=== PATIENT | male | born 1965 | race Caucasian/White ===

== ENCOUNTER 2020-05-08 02:02 | Outpatient (CLI) | payer OTHER, SELFPAY ==
[2020-05-08 18:20] LABS: SARS-CoV-2 RNA PCR Negative
== END 2020-05-08 02:03 | disposition home or self-care (01) ==
LOC: ANHCOVIDDT 02:02
PROVIDERS: PCP Family Medicine; Visit Provider Internal Medicine Gastroenterology
DX: Z01.812 Encounter for preprocedural laboratory examination (principal); Z11.59 Encounter for screening for other viral diseases
CPT/HCPCS: 87635; C9803; U0003

== ENCOUNTER 2020-05-10 01:35 | Day surgery (SDC) | payer OTHER, SELFPAY ==
[2020-05-03 13:11] VITALS: BMI 36.8
[2020-05-10 10:50] VITALS: BP 140/87; PULSE 82; RESP 18; TEMP 36.7; O2SAT 97; BMI 37.8
[2020-05-10] MEDS: LACTATED RINGERS 1,000 ML 150 ML IV CONT (11:08)
--- NOTE | 2020-05-10 11:23 | P.PNAN_ITS ---
Anes - Initial Pre Proc Eval Procedure: Operation Date: 05/10/20 11:15 Proposed Procedures p Screening Colonoscopy - Tye Stein MD Date/Time: 05/10/20 11:23 Surgeon: Tye Stein MD Pre Op Diagnosis: Neoplasm Screening Patient Data Age: 55 Gender: M Height: 5 ft 11 in Weight: 123.1 kg Last Vital Signs Temp 98.1 F 05/10/20 10:50 Pulse 82 05/10/20 10:50 Resp 18 05/10/20 10:50 BP 140/87 05/10/20 10:50 Pulse Ox 97 05/10/20 10:50 Allergies Allergy/AdvReac Type Severity Reaction Status Date / Time No Known Allergies Allergy Verified 05/03/20 13:06 Home Medications Medication Instructions Recorded Confirmed Type paroxetine HCl 12.5 mg 12.5 mg PO QAM #90 tablet 03/06/20 05/03/20 Rx tablet,extended release 24 hr alprazolam 0.25 mg tablet 0.25 mg PO TID PRN 03/08/20 05/03/20 History benazepril 20 mg tablet 20 mg PO DAILY #90 tablet 03/08/20 05/03/20 Rx ezetimibe 10 mg tablet 10 mg PO DAILY #90 tablet 04/11/20 05/03/20 Rx paroxetine HCl 37.5 mg 37.5 mg PO QAM #90 tablet 04/24/20 05/03/20 Rx tablet,extended release 24 hr hydrochlorothiazide 50 mg PO DAILY 05/03/20 05/03/20 History Patient hx anesthesia problems: none Family hx anesthesia problems: none [facility] Past Medical History Medical History (Updated 05/10/20 @ 11:23 by Jonel Garcia MD) Anxiety and depression Essential hypertension Social History Social History Smoking status: Never smoker Alcohol intake: current Anes - Eval Final PreProcedure Day of Procedure 05/10/20 11:23 Patient weight: obese Heart: regular rate and rhythm Lungs: clear to auscultation Airway: Mallampati scale class II Neurological: alert and oriented Last oral intake: >/= 8 hours Emergent: no Anesthetic plan: proceed Anesthesia type and monitoring: general GIVS and standard monitoring Informed Consent: The patient's anesthetic plan and its attendant risks and benefits were discussed with the patient/family/POA. Questions were solicited and answers provided to the satisfaction of the patient/family/POA.
--- NOTE | 2020-05-10 12:11 | PM.HPGS ---
History of Present Illness History of Present Illness Consent: Risks, benefits, and alternatives have been discussed and questions answered. Patient agrees to proceed with procedure. Chief complaint: Neoplasm Screening Narrative: Yinka Roberts is a 55 year old male here for screening colonoscopy, last one 5 years ago Review of Systems Constitutional: Constitutional: Denies headache(s) and Denies weakness Eyes: Eyes: Denies blurry vision ENT: Reports Normal hearing present, Denies headache(s) and Denies neck pain Cardiovascular: Cardiovascular: Denies chest pain and Denies dyspnea Respiratory: Respiratory: Denies dyspnea Gastrointestinal: Gastrointestinal: Reports no additional gastrointestinal complaints Genitourinary: Genitourinary: Denies dysuria Musculoskeletal: Musculoskeletal: Denies neck pain Integumentary/Breasts: Skin/Breast: Denies dry skin Neurologic: Reports Normal hearing present, Denies headache(s) and Denies weakness Psychiatric: Psychiatric: Denies anxiety Endocrine: Endocrine: Denies change in body appearance Hematologic/Lymphatic: Hematologic/Lymphatic: Denies easy bleeding Allergic/Immunologic: Allergic/Immunologic: Denies urticaria PMFSH Past Medical History Medical History (Updated 05/10/20 @ 12:11 by Tye Stein MD) Anxiety and depression Colon cancer screening Essential hypertension Social History Social History Smoking status: Never smoker Alcohol intake: current Meds Home Medications and Allergies Home Medications Medication Instructions Recorded Confirmed Type paroxetine HCl 12.5 mg 12.5 mg PO QAM #90 tablet 03/06/20 05/03/20 Rx tablet,extended release 24 hr alprazolam 0.25 mg tablet 0.25 mg PO TID PRN 03/08/20 05/03/20 History benazepril 20 mg tablet 20 mg PO DAILY #90 tablet 03/08/20 05/03/20 Rx ezetimibe 10 mg tablet 10 mg PO DAILY #90 tablet 04/11/20 05/03/20 Rx paroxetine HCl 37.5 mg 37.5 mg PO QAM #90 tablet 04/24/20 05/03/20 Rx tablet,extended release 24 hr hydrochlorothiazide 50 mg PO DAILY 05/03/20 05/03/20 History Allergies Allergy/AdvReac Type Severity Reaction Status Date / Time No Known Allergies Allergy Verified 05/03/20 13:06 Vital Signs Vital Signs - 24 hr 05/10/20 10:50 Temperature 98.1 F Pulse Rate 82 Respiratory Rate 18 Blood Pressure 140/87 Pulse Oximetry 97 Exam Const: General: comfortable and no acute distress HENMT: General nose exam: Normal nares present Eyes: General: appearance normal, both eyes and all related structures Neck: Neck: no JVD Resp: Auscultation: clear to auscultation bilaterally Cardio: Rate: regular rate Rhythm: regular rhythm GI: Inspection: non-distended GI Palp: Yes Soft to palpation Skin: General skin exam: normal color Neuro: General: gait normal Speech: normal speech Extrem: General: normal to inspection Psych: Mental Status: mental status grossly normal Assessment and Plan Assessment and plan (1) Colon cancer screening: Code(s): Z12.11 - Encounter for screening for malignant neoplasm of colon Status: Acute Assessment and Plan: will proceed with colonoscopy (2) Mixed hyperlipidemia: Code(s): E78.2 - Mixed hyperlipidemia Status: Acute
[2020-05-10 12:14] VITALS: BP 124/85; PULSE 88; RESP 17; O2SAT 91
[2020-05-10 12:24] VITALS: BP 134/89; PULSE 75; RESP 18; O2SAT 93
[2020-05-10 12:34] VITALS: BP 132/88; PULSE 72; RESP 20; O2SAT 95
== END 2020-05-10 12:47 | disposition home or self-care (01) ==
PROVIDERS: PCP Family Medicine; Visit Provider Internal Medicine Gastroenterology
PROC: 0DJD8ZZ Inspection of Lower Intestinal Tract, Via Natural or Artificial Opening Endoscopic (ICD-10-PCS; CPT 45378; principal; 2020-05-10 11:15)
DX: Z12.11 Encounter for screening for malignant neoplasm of colon (principal); D12.3 Benign neoplasm of transverse colon; K63.5 Polyp of colon; K57.30 Diverticulosis of large intestine without perforation or abscess without bleeding; K64.8 Other hemorrhoids; I10 Essential (primary) hypertension; F41.8 Other specified anxiety disorders; E66.9 Obesity, unspecified; Z68.37 Body mass index [BMI] 37.0-37.9, adult
CPT/HCPCS: 45380; 88305; J2001; J2704; J7120

== ENCOUNTER 2020-09-25 11:02 | Outpatient (CLI) | payer OTHER, SELFPAY ==
--- NOTE | 2020-09-25 11:03 | ECG_ITS ---
Measurements Intervals [place] Rate: 76 P: 58 [place]: 159 QRS: -35 QRSD: 146 T: -1 QT: 362 QTc: 409 Interpretive Statements SINUS RHYTHM LEFT AXIS DEVIATION RIGHT BUNDLE BRANCH BLOCK BASELINE ARTIFACT- I, II, III, AVR, AVL, AVF, V4-V6 ABNORMAL ECG Electronically Signed On 09-25-2020 11:35:27 SENIOR RESEARCH FELLOW by Adilson Aviles D.O.
[2020-09-25 11:39] LABS: Anion Gap 7 mmol/L (8-16); Blood Urea Nitrogen 14 mg/dL (9-20); Calcium 9.1 mg/dL (8.4-10.2); Carbon Dioxide 31 mmol/L (22-30); Chloride 100 mmol/L (98-107); Estimated Glomerular Filt Rate > 60; Glucose 103 mg/dL (75-110); Potassium 4.2 mmol/L (3.4-5.0); Sodium 138 mmol/L (137-145)
== END 2020-09-25 11:03 | disposition home or self-care (01) ==
LOC: ANHSURGERY 11:03
PROVIDERS: Anesthesiology; PCP Family Medicine; Visit Provider Surgery Plastic and Reconstructive Surgery
DX: Z01.818 Encounter for other preprocedural examination (principal); I45.10 Unspecified right bundle-branch block
CPT/HCPCS: 36415; 80048; 93005

== ENCOUNTER 2020-09-30 01:20 | Outpatient (CLI) | payer OTHER, SELFPAY ==
[2020-09-30 20:08] LABS: SARS-CoV-2 RNA PCR Negative
== END 2020-09-30 01:21 | disposition home or self-care (01) ==
LOC: ANHCOVIDDT 01:20
PROVIDERS: PCP Family Medicine; Visit Provider Surgery Plastic and Reconstructive Surgery
DX: Z01.812 Encounter for preprocedural laboratory examination (principal); Z20.822 Contact with and (suspected) exposure to COVID-19
CPT/HCPCS: C9803; U0003

== ENCOUNTER 2020-10-03 01:54 | Day surgery (SDC) | payer OTHER, SELFPAY ==
[2020-09-20 10:48] VITALS: BMI 37.9
[2020-10-03] VITALS (8 sets, daily range): BP systolic 138–162; BP diastolic 83–95; PULSE 87–96; RESP 16–20; TEMP 36–36.6; O2SAT 94–97; BMI 38.4
[2020-10-03] MEDS: LACTATED RINGERS 1,000 ML 30 ML IV CONT ×2 (13:19→16:08)
--- NOTE | 2020-10-03 13:22 | WPDANESEPPF ---
Anes - Initial Pre Proc Eval Procedure: Operation Date: 10/03/20 14:30 Proposed Procedures p Bilateral Blepharoplasty - Ulysses Henry MD Date/Time: 10/03/20 13:22 Surgeon: Ulysses Henry MD Pre Op Diagnosis: dermatochalisis Patient Data Age: 55 Gender: M Height: 5 ft 11 in Weight: 125 kg Last Vital Signs Temp 97.8 F 10/03/20 13:20 Pulse 87 10/03/20 13:20 Resp 20 10/03/20 13:20 BP 149/92 H 10/03/20 13:20 Pulse Ox 96 10/03/20 13:20 Allergies Allergy/AdvReac Type Severity Reaction Status Date / Time No Known Allergies Allergy Verified 10/03/20 13:09 Home Medications Medication Instructions Recorded Confirmed Type alprazolam 0.25 mg tablet 0.25 mg PO TID PRN 03/08/20 10/03/20 History multivitamin 1 cap PO DAILY 06/27/20 10/03/20 History ezetimibe 10 mg tablet 10 mg PO DAILY #90 tablet 09/01/20 10/03/20 Rx paroxetine HCl 12.5 mg 12.5 mg PO QAM #90 tablet 09/01/20 10/03/20 Rx tablet,extended release 24 hr paroxetine HCl 37.5 mg 37.5 mg PO QAM #90 tablet 09/01/20 10/03/20 Rx tablet,extended release 24 hr benazepril-hydrochlorothiazide 1 tablet PO DAILY 09/20/20 10/03/20 History [Lotensin HCT] docusate sodium 100 mg capsule 100 mg PO BID #14 cap 09/25/20 10/03/20 Rx hydrocodone 5 mg-acetaminophen 325 1 tablet PO Q6H PRN #15 tablet 09/25/20 10/03/20 Rx mg tablet ondansetron HCl 4 mg tablet 4 mg PO Q6H PRN #30 tablet 09/25/20 10/03/20 Rx Patient hx anesthesia problems: none Family hx anesthesia problems: none PMFSH Past Medical History Medical History (Updated 10/03/20 @ 13:22 by Jonel Garcia MD) Anxiety and depression Colon cancer screening Elevated liver enzymes Essential hypertension Mixed hyperlipidemia Surgical History Surgical History History of surgical removal of lesion Family History Family History Sibling Family history of malignant neoplasm Mother Family history of lung cancer Grandparent Family history of malignant neoplasm of brain Family history of malignant neoplasm of breast Family history of type 2 diabetes mellitus Father Family history of type 2 diabetes mellitus Social History Social History Smoking packs per day: 1 Smoking cigarettes per day: 20.0 Years smoked: 12 Smoking pack-years: 12.00 Smoking status: Never smoker Tobacco type: cigarettes Alcohol intake: current Substance use: never Gender identity (if verbalized by the patient): Male Spiritual care concerns: No Anes - Eval Final PreProcedure Day of Procedure 10/03/20 13:22 Patient weight: obese Heart: regular rate and rhythm Airway: Mallampati scale class III Neurological: alert and oriented ASA classification: III Emergent: no Anesthetic plan: proceed Anesthesia type and monitoring: general GIVS (may use LMA) and standard monitoring Informed Consent: The patient's anesthetic plan and its attendant risks and benefits were discussed with the patient/family/POA. Questions were solicited and answers provided to the satisfaction of the patient/family/POA.
--- NOTE | 2020-10-03 14:32 | WPDHPUPDATE1 ---
History and Physical Update Update Date/Time: 10/03/20 14:32 History and Physical has been reviewed, including an updated exam of the patient. There are NO changes in the patient's condition. Risks, benefits, and alternatives have been discussed and questions answered. Patient agrees to proceed with procedure.
--- NOTE | 2020-10-03 14:55 | PM.PROC ---
Procedure Note - Detailed Date of procedure: 10/03/20 Pre-op diagnosis: dermatochalisis Post-op diagnosis: same Procedure performed: Bilateral upper eyelid blepharoplasty Description of procedure: Risks, benefits, alternatives discussed in extensive detail. I want him to be very realistic about the risks involved as well as expectations including but not limited to blindness and permanent visual concerns. All questions were answered to his satisfaction today and consent was obtained. He was marked in the preoperative holding area with his verification. I did a pinch test to make sure there would be no lagophthalmos after the procedure. He was taken to the operating room placed supine on the operating room table. Anesthesia was provided by anesthesiology and prepped and draped in a standard sterile fashion. A 15 blade used to make an incision I did a skin resection. I then opened the medial and middle compartments and removed any obviously excess adipose tissue. I verified a strict hemostasis and closed using a running subcuticular 5-0 Prolene which was Steri-Stripped into place. He was woken taken to the PACU without difficulty. All instrument sponge counts were correct at the end of the case. Anesthesia: GLMA Surgeon: Ulysses Henry MD Estimated blood loss (mL): 5 Drains: No Packing: No Pathology: none sent Complications: No immediate complications Condition: stable Disposition: PACU
[2020-10-03] MEDS: ceFAZolin 3 GM/D5W 100 ML 100 ML IVPB (15:09)
[2020-10-03] MEDS: LIDO 1%/EPINEPHRINE 1:100,000 50 ML VIAL 10 ML INFILTRATE (15:20)
== END 2020-10-03 17:41 | disposition home or self-care (01) ==
PROVIDERS: PCP Family Medicine; Visit Provider Surgery Plastic and Reconstructive Surgery
PROC: (CPT 15822; principal; 2020-10-03 14:30)
DX: H02.834 Dermatochalasis of left upper eyelid (principal); H02.831 Dermatochalasis of right upper eyelid; H57.819 Brow ptosis, unspecified; I10 Essential (primary) hypertension; E78.2 Mixed hyperlipidemia; K76.0 Fatty (change of) liver, not elsewhere classified; F41.8 Other specified anxiety disorders; E66.9 Obesity, unspecified; Z68.38 Body mass index [BMI] 38.0-38.9, adult; Z87.891 Personal history of nicotine dependence
CPT/HCPCS: 15822; A9270; J0690; J1100; J2250; J2370; J2405; J2704; J3010; J7120

== ENCOUNTER 2020-11-17 08:09 | Outpatient (CLI) | payer OTHER, SELFPAY ==
--- NOTE | ~2020-11-17 | US_ITS ---
EXAMINATION: US abdomen complete DATE: 11/17/2020 08:54 INDICATION: Right-sided abdominal pain TECHNIQUE: Multiple grayscale and Doppler ultrasound images of the abdomen were obtained. COMPARISON: 12/12/2018 FINDINGS: Bowel gas obscures visualization of the pancreas. The visualized portions of the pancreas a re unremarkable. The liver demonstrates increased echogenicity, heterogenous echotexture, and decreas ed through transmission. Cysts of the liver measure up to 1.3 cm. No surface nodularity. Normal hepat opetal flow in the main portal vein. There is a 4 mm hyperechoic area of the gallbladder without defi nite posterior acoustic shadowing. No gallbladder wall thickening is identified. There is no perichol ecystic fluid. The normal common bile duct measures 4 mm. There was no sonographic Giron sign. The v isualized portions of the inferior vena cava are normal. The abdominal aorta is not well seen due to overlying bowel gas. The right kidney measures 12.7 x 5.6 x 5.5 cm. The left kidney measures 12.1 x 6.6 x 5.2 cm. The kidn eys demonstrate normal parenchymal echogenicity. There is no hydronephrosis. The spleen is normal in appearance and measures 10.1 cm. IMPRESSION: 1. Diffuse hepatic steatosis. 2. 4 mm polyp or stone of the otherwise normal gallbladder. 3. No sonographic correlate for the patient's symptoms. Reviewed, dictated and finalized at location A. [employer]
== END 2020-11-17 08:10 | disposition home or self-care (01) ==
PROVIDERS: PCP Family Medicine; Visit Provider Nurse Practitioner Family
DX: R10.9 Unspecified abdominal pain (principal); K76.0 Fatty (change of) liver, not elsewhere classified; R93.3 Abnormal findings on diagnostic imaging of other parts of digestive tract
CPT/HCPCS: 76700

== ENCOUNTER → 2020-12-02 00:47 | Outpatient (CLI) | payer OTHER, SELFPAY ==
[2020-12-02 19:48] LABS: SARS-CoV-2 RNA PCR Negative
== END ==
PROVIDERS: PCP Family Medicine; Visit Provider Surgery
DX: Z01.812 Encounter for preprocedural laboratory examination (principal); Z20.822 Contact with and (suspected) exposure to COVID-19
CPT/HCPCS: C9803; U0003; U0005

== ENCOUNTER 2020-12-02 09:55 | Outpatient (CLI) | payer OTHER, SELFPAY | END 2020-12-02 09:56 | disposition home or self-care (01) | PROVIDERS: PCP Family Medicine; Visit Provider Surgery | DX: Z01.818 Encounter for other preprocedural examination (principal); K80.20 Calculus of gallbladder without cholecystitis without obstruction | CPT/HCPCS: 36415; 86850; 86900; 86901 ==

== ENCOUNTER 2020-12-06 02:13 | Day surgery (SDC) | payer OTHER, SELFPAY ==
[2020-11-30 14:17] VITALS: BMI 38.4
--- NOTE | 2020-12-05 09:44 | WPDANESEPPF ---
Anes - Initial Pre Proc Eval Procedure: Operation Date: 12/06/20 07:30 Proposed Procedures p Laparoscopic Cholecystectomy - Kamaljit Shaw DO Date/Time: 12/05/20 09:44 Surgeon: Kamaljit Shaw DO Pre Op Diagnosis: Systematic Cholelithiasis Patient Data Age: 55 Gender: M Height: 1.8 m Weight: 125 kg Allergies Allergy/AdvReac Type Severity Reaction Status Date / Time No Known Allergies Allergy Verified 11/30/20 13:53 Home Medications Medication Instructions Recorded Confirmed Type alprazolam 0.25 mg tablet 0.25 mg PO TID PRN 03/08/20 11/30/20 History multivitamin 1 cap PO DAILY 06/27/20 11/30/20 History paroxetine HCl 12.5 mg 12.5 mg PO QAM #90 tablet 09/01/20 11/30/20 Rx tablet,extended release 24 hr paroxetine HCl 37.5 mg 37.5 mg PO QAM #90 tablet 09/01/20 11/30/20 Rx tablet,extended release 24 hr benazepril 40 mg tablet 40 mg PO DAILY #30 tablet 11/15/20 11/30/20 Rx ezetimibe 10 mg tablet 10 mg PO DAILY tablet 11/15/20 11/30/20 History hydrochlorothiazide 25 mg tablet 25 mg PO DAILY #30 tablet 11/15/20 11/30/20 Rx Patient hx anesthesia problems: none Family hx anesthesia problems: none PMFSH Past Medical History Medical History Anxiety and depression BMI 37.0-37.9, adult Colon cancer screening Elevated liver enzymes Essential hypertension Mixed hyperlipidemia Surgical History Surgical History History of colonoscopy History of eyelid surgery History of surgical removal of lesion History of tonsillectomy Family History Family History Sibling Family history of malignant neoplasm Mother Family history of lung cancer Non Hodgkin's lymphoma Grandparent Family history of malignant neoplasm of brain Family history of malignant neoplasm of breast Family history of type 2 diabetes mellitus Father Family history of type 2 diabetes mellitus Sibling Tobacco abuse Acute myocardial infarction Social History Social History Smoking packs per day: 1 Smoking cigarettes per day: 20.0 Years smoked: 12 Smoking pack-years: 12.00 Tobacco type: cigarettes Smoking end date: 12/28/96 Additional smoking assessment comments: smoker 1ppd x10 years Alcohol intake: current Drinks per week: 5 Substance use: never Substance use type: does not use Living arrangements: with family Additional occupation/education comments: Educator Gender identity (if verbalized by the patient): Male Spiritual care concerns: No Anes - Eval Final PreProcedure Day of Procedure 12/05/20 09:44 Patient weight: obese Heart: regular rate and rhythm Lungs: clear to auscultation and normal air movement Airway: Mallampati scale class II Neurological: alert and oriented Last oral intake: >/= 8 hours ASA classification: III Emergent: no Anesthetic plan: proceed Anesthesia type and monitoring: general ETT Informed Consent: The patient's anesthetic plan and its attendant risks and benefits were discussed with the patient/family/POA. Questions were solicited and answers provided to the satisfaction of the patient/family/POA.
[2020-12-06] VITALS (8 sets, daily range): BP systolic 121–159; BP diastolic 82–103; PULSE 70–88; RESP 15–20; TEMP 36.3–36.7; O2SAT 95–98
[2020-12-06] MEDS: ACETAMINOPHEN 500 MG TABLET 1000 MG PO (06:47)
[2020-12-06] MEDS: KETOROLAC 15 MG/ML VIAL (*BKC) IV PUSH (06:47)
[2020-12-06] MEDS: LACTATED RINGERS 1,000 ML 30 ML IV CONT ×2 (06:48→08:26)
--- NOTE | 2020-12-06 07:13 | WPDHPUPDATE1 ---
History and Physical Update Update Date/Time: 12/06/20 07:13 History and Physical has been reviewed, including an updated exam of the patient. There are NO changes in the patient's condition. Risks, benefits, and alternatives have been discussed and questions answered. Patient agrees to proceed with procedure.
[2020-12-06] MEDS: ceFAZolin 3 GM/D5W 100 ML 100 ML IVPB (07:26)
[2020-12-06] MEDS: BUPIVACAINE/EPINEPHRINE 0.5% 30 ML VIAL INFILTRATE (07:49)
--- NOTE | 2020-12-06 08:24 | PM.PROC ---
Procedure Note - Detailed Date of procedure: 12/06/20 Pre-op diagnosis: Systematic Cholelithiasis Post-op diagnosis: same Procedure performed: Laparoscopic Cholecystectomy Description of procedure: Procedure as well as risks, benefits, and alternatives were discussed with patient. Written consent was obtained and placed in chart prior to procedure. The patient was brought back to surgical suite. Patient was placed in supine position on operating table. Time-out was done to confirm patient and procedure. Patient was then intubated by the anesthesia department. Abdomen was prepped and draped in sterile fashion using chlorhexidine prep. 0.5% bupivacaine with epinephrine was infiltrated at each site of incision. A 5 millimeter incision was made near the umbilicus, and a 5 millimeter Optiview trocar was advanced through the abdominal layers under direct visualization. Once inside the abdominal cavity, carbon dioxide was insufflated to create a pneumoperitoneum. The camera was inserted and the abdomen was inspected. No immediate abnormalities were identified. The patient was placed in reverse Trendelenburg position and rotated slightly to the left. An 11 millimeter incision was made in the subxiphoid region, and an 11 millimeter trocar was inserted under direct visualization. Two 5 millimeter incisions were made in the right upper quadrant, and two 5 millimeter trocars were inserted under direct visualization. The gallbladder was identified and grasped at the fundus and retracted superiorly. It was then grasped at the infundibulum retracted laterally. Careful dissection around the neck of the gallbladder was performed using blunt dissection with a [place] grasper and hook electrocautery. The cystic duct was identified, and a window was created behind it. The cystic artery was also identified and a window was created behind it. The critical view of safety was identified, visualizing the cystic duct running directly into the neck of the gallbladder, and the cystic artery running directly into the wall of the gallbladder. A 5 millimeter clip fuel distribution system operator was then used to place 2 clips proximally and 1 clip distally on both the cystic duct and cystic artery. They were then both transected using endoscopic scissors. Once safely away from the isela hepatitis, the gallbladder was dissected free from the liver bed using hook electrocautery. Hemostasis was achieved along the way. The gallbladder was removed completely and then removed through the subxiphoid port. The liver bed was then inspected. Hemostasis appeared adequate, and our clips appeared secure. The area was gently irrigated with sterile saline. No other abnormalities were seen. The patient was flattened out in bed, and 1 final inspection was made around the abdominal cavity. The subxiphoid port was removed, and a Alex Javier cone was used to approximate the fascia with an 0-Vicryl simple interrupted suture. The remaining ports were then removed under direct visualization, the camera was removed, and the pneumoperitoneum was released. The skin of the incisions was approximated using 4-0 Monocryl subcuticular sutures. Exofin glue was applied on top. The patient was then awakened from anesthesia, extubated, and transferred to recovery. Anesthesia: GETA and local (0.5% bupivicaine with epi) Surgeon: Kamaljit Shaw DO Estimated blood loss (mL): 10 Drains: No Packing: No Pathology: yes Complications: No immediate complications Condition: stable (Patient tolerated procedure well, and is currently resting comfortably in recovery.) Disposition: same day Findings: This is a 55-year-old man who presented with right upper quadrant abdominal pain for the past month. He could not identify any particular foods that were causing this, but further workup included a gallbladder ultrasound which showed evidence of a polyp or stone. He continues to have intermittent symptoms. Discussions were made with the pa
[2020-12-06] MEDS: oxyCODONE HCL (*CRX) 5 MG TAB IR PO (09:19)
== END 2020-12-06 10:10 | disposition home or self-care (01) ==
PROVIDERS: PCP Family Medicine; Visit Provider Surgery
PROC: 0FT44ZZ Resection of Gallbladder, Percutaneous Endoscopic Approach (ICD-10-PCS; CPT 47562; principal; 2020-12-06 07:30)
DX: K81.1 Chronic cholecystitis (principal); I10 Essential (primary) hypertension; E78.2 Mixed hyperlipidemia; F41.8 Other specified anxiety disorders; Z87.891 Personal history of nicotine dependence; E66.9 Obesity, unspecified; Z68.38 Body mass index [BMI] 38.0-38.9, adult
CPT/HCPCS: 47562; 88304; A9270; J0690; J1100; J1885; J2250; J2405; J2704; J2710; J3010; J7030; J7120

== ENCOUNTER 2021-02-08 15:36 | Emergency (ER) | payer OTHER, SELFPAY ==
--- NOTE | ~2021-02-08 | XR_ITS ---
EXAMINATION: XR ribs RT 2V DATE: 02/08/2021 16:02 INDICATION: Right rib pain. Fall. TECHNIQUE: 3 views of the right ribs were obtained. COMPARISON: Chest 2 views 08/09/2016 FINDINGS: There is no right-sided pneumonia, pleural effusion, or pneumothorax. The heart size is nor mal. Surgical clips in the right upper quadrant are likely from cholecystectomy. IMPRESSION: 1. No rib fracture. Reviewed, dictated and finalized at location B. IMPRESSION: 1. No rib fracture.
--- NOTE | 2021-02-08 15:42 | ED.BACK ---
HPI - Back Pain/Injury General Chief Complaint: Back Pain/Injury Stated Complaint: Back pain Source: patient and RN notes reviewed Mode of arrival: ambulatory Limitations: no limitations History of Present Illness HPI Narrative: 55 yo male presents to the [facility] with C/O back pain. Patient states that he fell about a month ago and landed on a concrete parking stop. States that he injured his knee and has had mid to lower back pain since. Denies any loss or retention of bowel or bladder. Moves all extremities well. Walks with a normal gait MD elicited complaint: back pain, back injury and fall (Tripped and fell) Onset (ago): week(s) (About 4 weeks) Timing: intermittent Severity: mild Location: right flank Radiation: none Exacerbating factors: movement Relieving factors: medication (Ibuprofen helps) Context: fall (Tripped and fell) Associated symptoms: denies other symptoms Related Data Home Medications Medication Instructions Recorded Confirmed alprazolam 0.25 mg tablet 0.25 mg PO TID PRN 03/08/20 02/08/21 multivitamin 1 cap PO DAILY 06/27/20 02/08/21 ezetimibe 10 mg tablet 10 mg PO DAILY tablet 11/15/20 02/08/21 Allergies Allergy/AdvReac Type Severity Reaction Status Date / Time No Known Allergies Allergy Verified 02/08/21 15:52 Review of Systems Review of Systems: All systems reviewed & are unremarkable except as noted in HPI and below Constitutional: Constitutional: Reports no additional constitutional complaints, Denies chills, Denies fatigue, Denies fever(s) and Denies weakness Eyes: Eyes: Reports no additional eye complaints ENT: Reports system reviewed and no additional complaints, except as documented Cardiovascular: Cardiovascular: Reports no additional cardiovascular complaints, Denies chest pain and Denies radiating jaw, neck or arm pain Respiratory: Respiratory: Reports no additional respiratory complaints, Denies cough, Denies dyspnea and Denies wheezing Gastrointestinal: Gastrointestinal: Reports no additional gastrointestinal complaints, Denies abdominal pain, Denies diarrhea, Denies nausea and Denies vomiting Musculoskeletal: Musculoskeletal: Reports as per HPI, Reports back pain (Right mid), Denies myalgias, Denies arthralgias and Denies joint swelling Integumentary/Breasts: Skin/Breast: Reports system reviewed and no additional complaints, except as docu Neurologic: Reports system reviewed and no additional complaints, except as documented Psychiatric: Psychiatric: Reports no additional psychiatric complaints PMFSH Past Medical History Medical History Anxiety and depression BMI 37.0-37.9, adult Colon cancer screening Elevated liver enzymes Essential hypertension Mixed hyperlipidemia Surgical History Surgical History History of colonoscopy History of eyelid surgery History of surgical removal of lesion History of tonsillectomy Hx laparoscopic cholecystectomy Family History Family History Sibling Family history of malignant neoplasm Mother Family history of lung cancer Non Hodgkin's lymphoma Grandparent Family history of malignant neoplasm of brain Family history of malignant neoplasm of breast Family history of type 2 diabetes mellitus Father Family history of type 2 diabetes mellitus Sibling Tobacco abuse Acute myocardial infarction Social History Social History Smoking packs per day: 1 Smoking cigarettes per day: 20.0 Years smoked: 12 Smoking pack-years: 12.00 Smoking status: Former smoker Tobacco type: cigarettes Smoking end date: 12/28/96 Additional smoking assessment comments: smoker 1ppd x10 years Alcohol intake: current Drinks per week: 5 Substance use: never Substance use type: does not use Additional occupation/e
[2021-02-08 15:47] VITALS: BP 144/91; PULSE 79; RESP 16; TEMP 35.9; O2SAT 98
== END 2021-02-08 16:18 | disposition home or self-care (01) ==
PROVIDERS: Emergency Provider Nurse Practitioner; PCP Family Medicine
DX: S29.012A Strain of muscle and tendon of back wall of thorax, initial encounter (principal); W01.0XXA Fall on same level from slipping, tripping and stumbling without subsequent striking against object, initial encounter; Z87.891 Personal history of nicotine dependence; F41.9 Anxiety disorder, unspecified; F32.9 Major depressive disorder, single episode, unspecified; I10 Essential (primary) hypertension; E78.5 Hyperlipidemia, unspecified
CPT/HCPCS: 71100; 99213; G0463

== ENCOUNTER 2021-02-16 09:33 | Outpatient (CLI) | payer OTHER, SELFPAY ==
--- NOTE | ~2021-02-16 | XR_ITS ---
XR abdomen/kub 1V DATE: 02/16/2021 09:54 INDICATION: Hematuria TECHNIQUE: AP projection, 2 views COMPARISON: 02/16/2021 CT abdomen pelvis FINDINGS: Surgical clips overlie the right upper quadrant, consistent with cholecystectomy. The psoas shadows are intact. No visceromegaly is evident. There is no evidence of bowel obstruction. Heart size appears normal. The lung bases are clear. Included skeletal structures are unremarkable. IMPRESSION: Status post cholecystectomy Reviewed, dictated and finalized at [facility]. Reviewed, dictated and finalized at location B. IMPRESSION: Status post cholecystectomy
--- NOTE | ~2021-02-16 | CT_ITS ---
EXAMINATION: CT abdomen pelvis wo/w con DATE: 02/16/2021 10:25 INDICATION: Hematuria TECHNIQUE: Computed tomography (CT) of the abdomen and pelvis was performed without and subsequently with 130 cc Omnipaque 350 intravenous contrast. Automated exposure control and iterative reconstructi on technique were employed. Exam dose: 2743.16 mGy-cm total exam DLP. COMPARISON: None. FINDINGS: The lung bases are clear of infiltrate or consolidation. Normal heart size. No pericardial or pleural effusion. There is diffuse fatty infiltration of the liver. Occasional hepatic cysts. Status post cholecystectomy. No bile duct or pancreatic duct dilatation. No pancreatic mass lesion or calcification. Normal splenic size. Normal morphology of the adrenal glands. 3 mm right lower pole renal cyst. There is an indeterminate 10 x 14 mm hypoattenuating lesion of the lateral mid left kidney. No other renal mass lesion or urinary tract calculus or hydroureteronephrosis. Mild prostate enlargem ent. The urinary bladder is unremarkable. Normal caliber of the abdominal aorta. No intraperitoneal or retroperitoneal or pelvic mass lesion or adenopathy or ascites. Small fat-containing umbilical hernia Normal appendix. No bowel obstruction, bowel wall thickening, pneumatosis or intraperitoneal free air . No suspicious osteolytic or osteoblastic lesions are noted. IMPRESSION: Hepatic steatosis Status post cholecystectomy Indeterminate 10 x 14 mm hypoattenuating lesion of left kidney; considering history of hematuria, MR examination of the kidneys is recommended. Reviewed, dictated and finalized at [facility]. Reviewed, dictated and finalized at location B. IMPRESSION: Hepatic steatosis Status post cholecystectomy Indeterminate 10 x 14 mm hypoattenuating lesion of left kidney; considering his tory of hematuria, MR examination of the kidneys is recommended.
[2021-02-16 10:02] LABS: Estimated Glomerular Filt Rate > 60
== END 2021-02-16 09:34 | disposition home or self-care (01) ==
PROVIDERS: PCP Family Medicine; Visit Provider Nurse Practitioner Family
DX: R10.9 Unspecified abdominal pain (principal); R31.9 Hematuria, unspecified; K76.0 Fatty (change of) liver, not elsewhere classified; Z90.49 Acquired absence of other specified parts of digestive tract; N28.9 Disorder of kidney and ureter, unspecified
CPT/HCPCS: 74018; 74178; Q9967

== ENCOUNTER 2021-02-27 13:23 | Outpatient (CLI) | payer OTHER, SELFPAY ==
--- NOTE | ~2021-02-27 | MR_ITS ---
EXAMINATION: MR renal wo/w con DATE: 02/27/2021 14:59 INDICATION: Indeterminate left renal lesion. TECHNIQUE: Magnetic resonance imaging (MRI) of the abdomen was performed without and with 20 mL Multi dinesh intravenous contrast. Sequences included coronal T2-weighted SS-FSE, coronal and axial FS 2D-F IESTA, axial STIR FSE, axial T2-weighted SS-FSE, axial T2-weighted FS SS-FSE, axial diffusion-weighte d SE, axial dual-echo T1-weighted FSPGR, and axial and coronal T1-weighted LAVA. Postcontrast axial T 1-weighted LAVA images were obtained in a time course. Postcontrast coronal T1-weighted LAVA images w ere obtained. COMPARISON: CT dated 02/16/2021 FINDINGS: Heart size is normal. No pericardial or pleural effusion. Multiple T2 hyperintense nonenhancing hepat ic cysts scattered throughout the liver, the largest in the right hepatic lobe measuring up to 2.7 cm . There is underlying marked diffuse hepatic steatosis with significant signal loss on opposed phase images. Spleen, pancreas, right kidney and bilateral adrenal glands are normal. 1.5 x 0.9 cm cystic l esion at the lateral mid left kidney corresponding to the lesion of concern on prior CT. The lesion a ppears comprised of 2 separate nonenhancing cysts, the smaller and more superficial demonstrate typic al marked T2 hyperintensity. The larger deeper component is still T2 hyperintense but to a lesser deg ree suggesting a hemorrhagic/proteinaceous cyst. There is a thin intervening septation with nearly in discernible, nonmeasurable enhancement. No enhancing nodular component. Visualized portion of the bow els are unremarkable. No pathologically enlarged abdominal lymphadenopathy. Visualized bone marrow si gnal is normal throughout. IMPRESSION: 1. Benign minimally complex 1.5 x 0.9 cm Bosniak 2 cystic lesion at the lateral left kidney. Reviewed, dictated and finalized at location A.
== END 2021-02-27 13:24 | disposition home or self-care (01) ==
PROVIDERS: PCP Family Medicine; Visit Provider Nurse Practitioner Family
DX: N28.9 Disorder of kidney and ureter, unspecified (principal)
CPT/HCPCS: 74183; A9577

== ENCOUNTER 2022-06-22 10:21 | Emergency (ER) | payer OTHER, SELFPAY ==
--- NOTE | ~2022-06-22 | CT_ITS ---
EXAMINATION: CT cervical spine wo con DATE: 06/22/2022 11:19 INDICATION: Status post fall downstairs. TECHNIQUE: Computed tomography (CT) of the cervical spine was performed without intravenous contrast. The dose-length product was 504 mGy-cm. Automated exposure control and iterative reconstruction tech nique were employed. COMPARISON: None FINDINGS: There is moderate multilevel degenerative disc disease extending from C3-4 through C6-7. Th ere are are uncinate degenerative changes at these levels as well. No acute fracture or traumatic mal alignment. There is straightening of cervical lordosis. Odontoid process is normal. Craniovertebral j unction within normal limits. No evidence for perched facet. Spinous processes are normal. No prevert ebral soft tissue abnormality. IMPRESSION: 1. No acute abnormality of the cervical spine. 2: Moderate cervical spondylosis. Reviewed, dictated and finalized at location A.
--- NOTE | ~2022-06-22 | XR_ITS ---
XR hip LT min 3V w AP pelvis 06/22/2022 11:14 INDICATION: Left hip pain PROCEDURE: AP pelvis and 2 views left hip COMPARISON: No prior studies for comparison. FINDINGS: Fracture, dislocation or subluxation is not identified. The soft tissues appear within norm al limits. No foreign bodies are identified. IMPRESSION: 1: NO ACUTE BONE OR JOINT ABNORMALITY IDENTIFIED. Reviewed, dictated and finalized at location A.
[2022-06-22 10:23] VITALS: BP 148/96; PULSE 82; RESP 16; TEMP 36.4; O2SAT 99
--- NOTE | 2022-06-22 10:52 | ED.BACK ---
HPI - Back Pain/Injury General Chief Complaint: Back Pain/Injury Stated Complaint: fell down stairs a week ago; back and neck pain Time Seen by Provider: 06/22/22 10:30 History of Present Illness HPI Narrative: Patient is a 57-year-old male here for evaluation of left hip and neck pain after a fall down steps about a week ago. Patient states that he was wearing flip-flops when one of the flip-flops got caught on the steps, causing him to fall down 4-5 wooden stairs. States that he did not hit the stairs on the way down, states that was more like a free fall , causing him to land on his left hip. He did not hit his head or lose consciousness. He did not have pain immediately after the accident, but has developed a gradual pain in his right sided neck and left hip over the past week. He has attempted Flexeril and Tylenol without significant relief of his pain. He denies any incontinence or retention of his bowel or bladder, saddle anesthesia. He has been walking but states it is painful. Related Data Home Medications Medication Instructions Recorded Confirmed alprazolam 0.25 mg tablet (Xanax) 0.25 mg PO TID PRN Anxiety 03/08/20 08/29/21 Allergies Allergy/AdvReac Type Severity Reaction Status Date / Time No Known Allergies Allergy Verified 06/22/22 10:58 Review of Systems Review of Systems: Gen: Denies fevers or chills Eyes: Denies eye pain or visual change ENT: Denies congestion Respiratory: Denies shortness of breath or cough CV: Denies chest pain or palpitations GI: Denies abdominal pain nausea, emesis or diarrhea denies burning, urgency, frequency or hematuria Musculoskeletal: Reports back pain, left hip pain, right-sided neck pain. Neuro: Denies numbness, tingling, weakness or focal weakness Skin: Denies rash Except as documented, all other systems reviewed and negative PMFSH Past Medical History Medical History Anxiety and depression BMI 33.0-33.9,adult BMI 34.0-34.9,adult BMI 37.0-37.9, adult Colon cancer screening Elevated liver enzymes Essential hypertension Mixed hyperlipidemia Surgical History Surgical History History of colonoscopy History of eyelid surgery History of surgical removal of lesion History of tonsillectomy Hx laparoscopic cholecystectomy Family History Family History Sibling Family history of malignant neoplasm Mother Family history of lung cancer Non Hodgkin's lymphoma Grandparent Family history of malignant neoplasm of brain Family history of malignant neoplasm of breast Family history of type 2 diabetes mellitus Father Family history of type 2 diabetes mellitus Sibling Tobacco abuse Acute myocardial infarction Social History Social History Smoking packs per day: 1 Smoking cigarettes per day: 20.0 Years smoked: 12 Smoking pack-years: 12.00 Tobacco type: cigarettes Second hand tobacco smoke exposure: Yes Smoking end date: 12/28/96 Additional smoking assessment comments: smoker 1ppd x10 years Alcohol intake: former Drinks per week: 5 Substance use: never Substance use type: does not use Additional occupation/education comments: Educator Gender identity (if verbalized by the patient): Male Spiritual care concerns: No Exam Narrative: APPEARANCE: Well appearing, no pain in distress, well-nourished. Head: Normocephalic and atraumatic. EYES: PERRLA/EOMI, conjunctivae clear NOSE: No nasal drainage EARS: External ear normal in appearance THROAT: Oropharynx is clear. Mucous membranes are moist. NECK: Supple. No adenopathy, no masses. RESPIRATORY: Airway patent, respirations nonlabored. Clear to auscultation bilaterally, no rales, rhonchi, wheezing. CARDIOVASCULAR: Regular rate and rhy
[2022-06-22] MEDS: LIDOCAINE 5% PATCH 1 PATCH TRANSDERM (11:41)
[2022-06-22] MEDS: KETOROLAC 30 MG/ML VIAL (*BKC) IM (11:42)
[2022-06-22] MEDS: ACETAMINOPHEN 325 MG TABLET 650 MG PO (12:25)
== END 2022-06-22 12:30 | disposition home or self-care (01) ==
PROVIDERS: Emergency Provider Emergency Medicine; PCP Family Medicine
DX: S73.102A Unspecified sprain of left hip, initial encounter (principal); I10 Essential (primary) hypertension; E78.2 Mixed hyperlipidemia; F41.9 Anxiety disorder, unspecified; F32.A Depression, unspecified; Z87.891 Personal history of nicotine dependence; M47.812 Spondylosis without myelopathy or radiculopathy, cervical region; W10.9XXA Fall (on) (from) unspecified stairs and steps, initial encounter
CPT/HCPCS: 72125; 73502; 96372; 99284; A9270; J1885

== ENCOUNTER → 2023-01-02 16:17 | Outpatient (CLI) | payer OTHER, SELFPAY ==
--- NOTE | ~2023-01-02 | MR_ITS ---
EXAMINATION: MR cervical spine wo con DATE: 01/02/2023 16:56 INDICATION: Cervical radiculopathy. TECHNIQUE: Magnetic resonance imaging (MRI) of the cervical spine was performed without intravenous c ontrast. Sequences included sagittal T2-weighted FSE, sagittal T2-weighted FS FSE, sagittal T1-weight ed FSE, axial MERGE, and axial T2-weighted FSE. COMPARISON: Cervical spine CT 06/22/2022 FINDINGS: There is mild kyphosis of lower cervical spine. Vertebral body heights are normal. There is mildly decreased disc height at C3-C4 and C5-C6 and moderately decreased disc height at C6-C7. The s dean cord signal intensity is normal. The following disc levels are specifically discussed: C2-C3: There is a central protrusion. There is mild bilateral uncovertebral joint osteoarthritis. The re is mild bilateral facet joint osteoarthritis. There is no neural foraminal stenosis. There is no c entral canal stenosis. C3-C4: The disc is bulging. There is moderate right and severe left uncovertebral joint osteoarthriti s. There is moderate right and severe left facet joint osteoarthritis. There is mild right and modera te left neural foraminal stenosis. There is mild central canal stenosis. C4-C5: The disc does not extend beyond the endplate margin. There is mild bilateral uncovertebral sarah nt osteoarthritis. There is mild bilateral facet joint osteoarthritis. There is no neural foraminal s tenosis. There is no central canal stenosis. C5-C6: The disc is bulging. There is severe right and moderate left uncovertebral joint osteoarthriti s. There is mild bilateral facet joint osteoarthritis. There is moderate right neural foraminal steno sis. There is mild central canal stenosis with ventral indentation of the spinal cord. C6-C7: The disc is bulging with superimposed left central extrusion. There is severe bilateral uncove rtebral joint osteoarthritis. There is mild bilateral facet joint osteoarthritis. There is mild bilat eral neural foraminal stenosis. There is mild central canal stenosis with ventral indentation of the spinal cord. C7-T1: There is a central protrusion. There is no uncovertebral joint osteoarthritis. There is severe right and moderate left facet joint osteoarthritis. There is mild bilateral neural foraminal stenosi s. There is no central canal stenosis. IMPRESSION: 1. Moderate cervical spondylosis. Reviewed, dictated and finalized at location A.
== END ==
DX: M54.12 Radiculopathy, cervical region (principal); M43.02 Spondylolysis, cervical region
CPT/HCPCS: 72141

== ENCOUNTER 2023-02-28 17:52 | Emergency (ER) | payer OTHER, SELFPAY ==
--- NOTE | ~2023-02-28 | XR_ITS ---
EXAMINATION: XR chest 2V DATE: 02/28/2023 18:27 INDICATION: Productive cough TECHNIQUE: PA and lateral views of the chest were obtained. COMPARISON: Chest radiograph dated 08/09/2016 FINDINGS: Unchanged opacity extending laterally from the apex of the heart which on lateral projection appears to correspond to a small pericardial fat pad. No other airspace opacities, pulmonary edema, pleural e ffusion or pneumothorax. The cardiomediastinal silhouette is normal. Mild thoracic spondylosis with c hronic mild anterior wedging of a few lower thoracic vertebral bodies. IMPRESSION: 1. No acute cardiopulmonary disease. Reviewed, dictated and finalized at location A.
[2023-02-28 18:00] VITALS: BP 147/96; PULSE 82; RESP 16; TEMP 36.4; O2SAT 96
--- NOTE | 2023-02-28 18:01 | ED.URI ---
HPI - URI/Sore Throat General Chief Complaint: Upper Respiratory Infection Stated Complaint: Cough/SOB Time Seen by Provider: 02/28/23 18:28 Source: patient and RN notes reviewed Mode of arrival: ambulatory Limitations: no limitations History of Present Illness HPI Narrative: 57-year-old male presents with concern for 10 day history of nasal congestion, rhinorrhea, persistent cough, wheezing. Reports when his symptoms started he had fever, aches. Reports he has been using steam, peppermint tea, Stephanie. MD elicited complaint: cough and nasal congestion Related Data Home Medications Medication Instructions Recorded Confirmed multivitamin with minerals 1 tablet PO DAILY 02/28/23 02/28/23 Allergies Allergy/AdvReac Type Severity Reaction Status Date / Time No Known Allergies Allergy Verified 02/28/23 18:02 Review of Systems Review of Systems: CONSTITUTIONAL: Denies current malaise, chills, sweats, or fever. EYES: Denies visual changes, redness, or discharge. ENT: Reports rhinorrhea, congestion, sinus pain. Denies otalgia and sore throat. CARDIOVASCULAR: Denies chest pain, palpitations, or edema. RESPIRATORY: Reports productive cough and wheezing. Denies dyspnea. GASTROINTESTINAL: Denies abdominal pain, nausea, vomiting, diarrhea SKIN: Denies rash or itching. MUSCULOSKELETAL: Denies current myalgia. NEUROLOGIC: Denies headache. All systems reviewed & are unremarkable except as noted in HPI and below PMFSH Past Medical History Medical History Anxiety and depression BMI 33.0-33.9,adult BMI 34.0-34.9,adult BMI 35.0-35.9,adult BMI 37.0-37.9, adult Colon cancer screening Elevated liver enzymes Essential hypertension Mixed hyperlipidemia Surgical History Surgical History History of colonoscopy History of eyelid surgery History of surgical removal of lesion History of tonsillectomy Hx laparoscopic cholecystectomy Family History Family History Sibling Family history of malignant neoplasm Mother Family history of lung cancer Non Hodgkin's lymphoma Grandparent Family history of malignant neoplasm of brain Family history of malignant neoplasm of breast Family history of type 2 diabetes mellitus Father Family history of type 2 diabetes mellitus Sibling Tobacco abuse Acute myocardial infarction Social History Social History Smoking packs per day: 1 Smoking cigarettes per day: 20.0 Years smoked: 12 Smoking pack-years: 12.00 Smoking status: Never smoker Tobacco type: cigarettes Second hand tobacco smoke exposure: Yes Smoking end date: 12/28/96 Additional smoking assessment comments: smoker 1ppd x10 years Alcohol intake: former Drinks per week: 5 Substance use: never Substance use type: does not use Lack of Transportation: No Lack of Food: Never True Current Housing: I Have Housing Concerned About Future Housing: No Difficulty Paying Gas/Electric Bills: No Difficulty Paying for Meds: No Currently Unemployed: No Education: Master's Degree or Higher Difficulty w/ Childcare or Family Care: No Living arrangements: with family 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 There is no relevant family history pertinent to the presenting complaint Exam Narrative: GENERAL: Well-appearing, well-nourished, and in no acute distress. HEAD: Normocephalic EYES: PERRLA, conjunctivae clear ENT: Nares clear, turbinates edematous and erythematous. Mucous membranes moist. TM pearly miller with dull light ref
[2023-02-28 18:04] VITALS: BP 147/96; PULSE 82; RESP 16; TEMP 36.4; O2SAT 96
== END 2023-02-28 19:06 | disposition home or self-care (01) ==
PROVIDERS: Emergency Provider Nurse Practitioner; PCP Family Medicine
DX: J32.9 Chronic sinusitis, unspecified (principal); J40 Bronchitis, not specified as acute or chronic; Z87.891 Personal history of nicotine dependence; I10 Essential (primary) hypertension; E78.2 Mixed hyperlipidemia; F41.9 Anxiety disorder, unspecified; F32.A Depression, unspecified
CPT/HCPCS: 71046; 99213; G0463

== ENCOUNTER 2024-04-12 13:16 | Outpatient (CLI) | payer OTHER, SELFPAY ==
--- NOTE | ~2024-04-12 | MR_ITS ---
EXAMINATION: MR foot LT wo con DATE: 04/12/2024 14:06 INDICATION: Percutaneous rupture of the flexor tendon of the foot and ankle presenting with chronic l eft hindfoot pain. TECHNIQUE: Magnetic resonance imaging (MRI) of the left ankle was performed without intravenous contr ast. Sequences included sagittal, coronal, and axial proton-density weighted fast spin echo without a nd with fat saturation. COMPARISON: None. FINDINGS: Medial ankle ligaments: Deep and superficial deltoid ligaments as well as the spring ligament are normal. Lateral ankle ligaments: The anterior and posterior inferior tibiofibular ligaments are normal. There is prominent thickening of the anterior talofibular ligament and less prominent thickening but mild increased signal at the c alcaneofibular ligament, both without stranding edema consistent with scarring related to chronic spr ains. The posterior talofibular ligament is normal. Tendons: Achilles tendon is normal. Small amount of tenosynovial fluid along the peroneal tendon sheath with m ild surrounding edema distally beginning at the cuboid darrion and extending along the plantar aspect of the midfoot consistent with moderate peroneal tenosynovitis. There is associated mild edema along the peroneal sulcus/cuboid groove at the plantar aspect of the cuboid consistent with a cuboid darrion lesion. The peroneus longus and brevis tendons as well as the accessory peroneus quartus tendon whic h inserts at the lateral trochlear eminence of the calcaneus are normal. The tibialis anterior and ex tensor hallucis longus and extensor digitorum longus tendons are normal. The tibialis posterior, flex or digitorum longus and flexor hallucis longus tendons are normal. Plantar fascia: The plantar aponeurosis is normal. Bones/other: Bone alignment is normal. Aside from at the cuboid there is normal marrow signal. No fracture or path ologic marrow replacing process. Joint spaces appear relatively preserved. Lisfranc ligament complex is normal. Fluid: Physiologic amount of fluid in the joint spaces. IMPRESSION: 1. Cuboid darrion lesion with moderate tenosynovitis surrounding the normal distal peroneus longus ten don and associated cuboid marrow edema along the peroneal sulcus/cuboid groove. Line 2. Scarring consistent with chronic sprains of the anterior talofibular and calcaneofibular ligaments . Reviewed, dictated and finalized at location A. IMPRESSION: 1. Cuboid darrion lesion with moderate tenosynovitis surrounding the normal dist al peroneus longus tendon and associated cuboid marrow edema along the peroneal sulcus/cuboid groove. Line 2. Scarring consistent with chronic sprains of the anterior talofibular and clayton caneofibular ligaments.
== END 2024-04-12 13:17 ==
LOC: MICIMG 13:17
PROVIDERS: PCP Family Medicine; Visit Provider Podiatrist Foot & Ankle Surgery
DX: M66.372 Spontaneous rupture of flexor tendons, left ankle and foot (principal); M25.572 Pain in left ankle and joints of left foot; M77.52 Other enthesopathy of left foot and ankle; M65.9 Synovitis and tenosynovitis, unspecified
CPT/HCPCS: 73718

== ENCOUNTER 2025-04-13 12:54 | Outpatient (CLI) | payer OTHER, SELFPAY ==
--- NOTE | ~2025-04-13 | XR_ITS ---
Lumbosacral Spine: AP, oblique, and lateral views Clinical History: Pain Findings: The normal lordotic curve is maintained. The vertebral bodies and posterior elements are i ntact. The intervertebral disc spaces are preserved. There is moderate to advanced facet arthropathy throughout the lumbar spine. The sacroiliac joints are normally outlined. Impression: Moderate to advanced facet arthropathy throughout the lumbar spine. Reviewed, dictated and finalized at location . Impression: Moderate to advanced facet arthropathy throughout the lumbar spine.
== END 2025-04-13 12:55 | disposition home or self-care (01) ==
LOC: MICIMG 12:55
PROVIDERS: PCP Family Medicine; Visit Provider Chiropractor Rehabilitation
DX: M47.816 Spondylosis without myelopathy or radiculopathy, lumbar region (principal)
CPT/HCPCS: 72110

== ENCOUNTER 2025-06-28 00:25 | Day surgery (SDC) | payer OTHER, SELFPAY ==
--- OUTSIDE RECORDS SUMMARY | 2016-02-22 19:00 | XMS_ITS | Continuity of Care Document ---
Author Organization [facility] Address [address] [place] [address] Phone Care Team Providers Care Transit Worker Name Role Phone Saeed Silva MD Unavailable Unavailable Advance Directives Directive Yes / No Effective Date File Name No Information Encounters Encounter Description Practice Location Reason(s) For Visit Diagnoses Date Provider Providers Copied on Encounter [facility], [address], [place], [place], [id number], tel:[phone] [facility] No Information Ricardo Tipton. [address] [place] [address], [id number], . tel:[phone] Referring Provider: Mihir Rivera, [address] [place] [address], [id number]. tel:[phone] Family History Family Member Type Diagnosis Age At Onset No Information Payers Payer name Insurance type Covered democrat ID Authoriza tion(s) [facility] CI [id number] Social History Type Description Quantity Date Captured Comments Sex Male Smoking Status No Information Chief Complaint And Reason For Visit No Information Reason For Referral Reason For Referral No Information History Of Present Illness Encounter Date Complaint History Of Prese nt Illness No Information Functional Status Date Functional Assessmen t No Information Instructions Date Instruction Additional Infor mation No Information Assessments Type Assessment Date No Information Patient Care Teams Name Effective Dates (start - stop) Status Members No Information
[2025-06-16 08:34] VITALS: BMI 34.8
--- OUTSIDE RECORDS SUMMARY | 2025-06-28 00:29 | XMS_ITS | Encounter Summary ---
Author Organization [facility] Address [address] [place] [address] Phone Care Team Providers Care Electric Motors Salesperson Name Role Phone Jeff Frazier MD Primary Care Provider Encounter Details Date Type Department Care Team (Late st Contact Info) Description 11/17/2020 Orders Only [facility] Scanning, Provider Social History Tobacco Use Types Packs/Day Years Used Date Smoking Tobacco: Former Cigarettes Q uit: 05/03/1997 Smokeless Tobacco: Never Alcohol Use Standard Drinks/Week Comments Yes 0 (1 standard drink = 0.6 oz pur e alcohol) AUDIT-C Answer Date Recorded Frequency of Alcohol Consumption 2-3 times a wee k 05/23/2020 Average Number of Drinks 1 or 2 020 Frequency of Binge Drinking Less than monthly Sex and Gender Information Value Date Recorded Sex Assigned at Not on file 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 Gender Identity Male 07/25/2021 3:04 PM CDT Sexual Orientation Keller 07/25/2021 3: 04 PM CDT documented as of this encounter Plan of Treatment Not on file documented as of this encounter Procedures Procedure Name Priority Date/Time Associated Diagnosis Comments SCAN - RADIOLOGY/IMAGING 11/17/2020 SCAN - LABS 11/17/2020 documented in this encounter Results * SCAN - LABS (11/17/2020) us Provider Scanning Final Result * SCAN - RADIOLOGY/IMAGING (11/17/2020) Anatomical Region Laterality Modality Other us Provider Scanning Final Result documented in this encounter Visit Diagnoses Not on filedocumented in this encounter Care Teams Electric Motors Salesperson Relationship Specialty Start Date End Date Jeff Frazier MD PCP - General Family Medicine 02/20/19 documented as of this encounter
--- OUTSIDE RECORDS SUMMARY | 2025-06-28 00:29 | XMS_ITS | Patient Health Record ---
Author Organization [facility] Address [address] [facility] [address] [place] [address] Support Name Relationship Address Phone JOSH MCGUIRE Guarantor Unknown Reason For Referral No Information Medications Medication SIG (Take, Route, Fr equency, Duration) Notes Start Date End Date Status Paxil 30 MG Tablet Oral A ctive Plan Of Treatment No Information
--- OUTSIDE RECORDS SUMMARY | 2025-06-28 00:29 | XMS_ITS | Clinical Summary ---
Author Organization [facility] Address [address] [place] [address] Phone Care Team Providers Care Content Management Consultant Name Role Phone Provider, None Primary Care Provider Unavailabl e Allergies No known active allergies Medications paroxetine (PAXIL) 30 MG PO TABS Take 30 mg by mouth daily. 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 Gender Identity Not on file Sexual Orientation Not on file Last Filed Vital Signs Vital Sign Reading Time Taken Comments Blood Pressure 132/80 03/31/2010 12:21 PM CDT Pulse 67 03/31/2010 12:21 PM CDT Temperature - - Respiratory Rate 19 03/31/2010 12:21 PM CDT Oxygen Saturation 96% 03/31/2010 2:36 AM CDT Inhaled Oxygen Concentration - - Weight 99.8 kg (220 lb) 03/30/2010 9:58 PM CDT Height 180.3 cm (5' 11) 03/30/2010 9:58 PM CDT Body Mass Index 30.68 03/30/2010 9:58 PM CDT Plan of Treatment Health Maintenance Due Date Last Done Comments Hepatitis C Virus (HCV) Screening 1965 TdaP Immunization 1965 Cologuard 2010 Colonoscopy 2010 Colorectal Cancer Screening 2010 Immunochemical Fecal Occult Blood 2010 Pneumococcal Immunization (5 0+ years) (1 of 1 - PCV) 2015 Zoster Immunization (1 of 2) 2015 Influenza Immunization (#1) 2025 SARS-COV-2 Immunization (2024- season) 2025 09/10/2021, 01/18/2021, 12/28/2020 Respiratory Syncytial Virus (RSV) Immunization (Adult) (1 - 1-dose 75+ series) 2040 Hepatitis B Immunization Aged Out No longer eligible based on patient's age to complete this topic Human Papillomavirus (HPV) Immunization Aged Out No longer eligible b ased on patient's age to complete this topic Meningococcal Immunization (ACWY) Aged Out No longer eligible b ased on patient's age to complete this topic Rotavirus Immunization Aged Out No lo nger eligible based on patient's age to complete this topic Advance Directives * Full Code (Latest Code Status on File) Date Activated Date Inactivated Comments 03/31/2010 12:54 AM 03/31/2010 3:13 PM Care Teams Content Management Consultant Relationship Specialty Start Date End Date Provider, None EVELINA PCP - General 03/30/10
--- OUTSIDE RECORDS SUMMARY | 2025-06-28 00:29 | XMS_ITS | Clinical Summary ---
Author Organization [facility] Address [address] [place] [id number] Phone Care Team Providers Care Real Estate Professor Name Role Phone Jeff Frazier MD Primary Care Provider [phone] Allergies No known active allergies Medications benazepril (LOTENSIN) 40 MG tablet 40 mg daily 03/04/2019 Active ezetimibe (ZETIA) 10 MG tablet daily 01/26/2019 Active hydroCHLOROthia zide (HYDRODIURIL) 25 MG tablet 25 mg daily 04/11/2020 Acti ve Multiple Vitamin (multivitamin) capsule Take 1 capsule by mouth daily Active PARoxetine CR (PAXIL-CR) 12.5 MG 24 hr tablet daily 03/04/2019 Act claudio PARoxetine CR (PAXIL-CR) 37.5 MG 24 hr tablet daily 03/04/2019 Act claudio traMADol (ULTRAM) 50 MG tablet Take 50 mg by mouth every 12 (twelve) hours if needed for pain 03/06/2021 Active Active Problems Problem Noted Date Diagnosed Date Steatosis of liver 05/03/2019 Overview (05/17/2021): Last Assessment & Plan: Routine labs earlier this year noted mildly elevated AST to 63, ALT 35. RUQ u/s was performed and showed diffuse hepatic steatosis. He is moderately obese on exam and has no stigmata of cirrhosis or chronic liver disease. Fibroscan in clinic today showed evidence of significant steatosis but no fibrosis. His elevated liver enzymes are most likely 2/2 GIPSON/NAFLD but we will r/o alterative etiologies. He is also on atorvastatin as well which can elevate liver enzymes. We will do blood-work today: CBC, CMP, hepatitis serologies, ferritin, ceruloplasmin, ASMA, AMA, and A1c. He may have had some improvement in his liver chemistries already since he lost some weight. 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 Should evaluation for other etiologies be negative the most helpful interventions for him would be diet, exercise, and weight loss and we discussed the importance of this for the eeg technician health of his liver. He is planning to restart weight watchers and increase physical activity. Family History Medical History Relation Comments Hypertension Brother Coronary artery disease Father Diabetes mellitus Father Lung cancer Mother Non-Hodgkin's lymphoma (clinical) Mother Relation Status Comments Brother Father Maternal Grandfather Alive Mother Social History Tobacco Use Types Packs/Day Years Used Date Smoking Tobacco: Former Cigarettes 1 12 - 1996 Smokeless Tobacco: Never Alcohol Use Standard Drinks/Week Comments Yes 5 (1 standard drink = 0.6 oz pur e alcohol) Sex and Gender Information Value Date Recorded Sex Assigned at Not on file Legal Sex Male 12:23 PM MDT Gender Identity Not on file Sexual Orientation Not on file Last Filed Vital Signs Vital Sign Reading Time Taken Comments Blood Pressure 132/76 06/25/2021 9:46 AM CDT Pulse - - Temperature 36.4 C (97.5 F) 06/25/2021 9:46 AM CDT Respiratory Rate 18 06/25/2021 9:46 AM CDT Oxygen Saturation - - Inhaled Oxygen Concentration - - Weight 114 kg (251 lb) 06/25/2021 9:46 AM CDT Height 180.3 cm (5' 11) 06/25/2021 9:46 AM CDT Body Mass Index 35.01 06/25/2021 9:46 AM CDT Plan of Treatment Health Maintenance Due Date Last Done Comments Influenza Vaccine (#1) 2025 Insurance [employer] Care Teams Real Estate Professor Relationship Specialty Start Date End Date Jeff Frazier MD [address] [place] [id number] PCP - General Family Medicine 03/13/21
--- OUTSIDE RECORDS SUMMARY | 2025-06-28 00:29 | XMS_ITS | Clinical Summary ---
Author Organization [facility] Address [address] [place] [phone] Care Team Providers Care Exhibits Manager Name Role Phone Jeff Frazier MD Primary Care Provider Allergies No known active allergies Medications PARoxetine CR (PAXIL-CR) 37.5 mg 24 hr tablet daily 9 Active PARoxetine CR (PAXIL-CR) 12.5 mg 24 hr tablet daily 9 Active ezetimibe (ZETIA) 10 mg tablet daily 9 Active benazepriL (LOTENSIN) 40 mg tablet 40 mg daily 9 Active hydroCHLOROthiazi de (HYDRODIURIL) 25 mg tablet 12.5 mg daily 0 Active UNABLE TO FIND Liver health Ac tive multivit-min/foli c/vit K/lycop (MEN'S 50 PLUS MULTIVITAMIN ORAL) Take by mouth Active albuterol HFA (PROVENTIL HFA,VENTOLIN HFA,PROAIR HFA) 90 mcg/actuation inhaler 3 Active triamcinolone (KENALOG) 0.1 % ointmentIndicatio ns:Jose Raul's disease Apply topically daily as needed for rash To Trunk and Hands 454 g 5 Active Active Problems Problem Noted Date Diagnosed Date Hepatic steatosis 05/03/2019 Assessment & Plan (05/03/2019 9:47 AM CDT): Routine labs earlier this year noted mildly [...] discussed the importance of this for the jail health of his liver. He is planning to restart weight watchers and increase physical activity. Immunizations Immunization Administration Dates Next Due Pfizer SARS-CoV-2 Monovalent Vaccination (12+ Yrs) PURPLE 01/18/2021,12/28/2020 Surgical History Surgery Date Site/Laterality Comments COLONOSCOPY 09/29/2015 - 09/28/2016 hemorrhoids TONSILLECTOMY Medical History Medical History Date Comments Anxiety HTN (hypertension) HLD (hyperlipidemia) Family History Medical History Relation Name Comments Hypertension Brother Diabetes Father Heart attack Father Lung cancer Mother Diabetes Paternal Grandfather Breast cancer Paternal Grandmother Relation Name Status Comments Brother Father Mother Paternal Grandfather Paternal Grandmother Social History Tobacco Use Types Packs/Day Years [...] on file 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 Gender Identity Male 07/25/2021 3:04 PM CDT Sexual Orientation Keller 07/25/2021 3: 04 PM CDT Obstetrics History Last Filed Vital Signs Vital Sign Reading Time Taken Comments Blood Pressure 147/89 10/30/2021 11:34 AM SENIOR CLIMATE ADVISOR Pulse 70 10/30/2021 11:34 AM SENIOR CLIMATE ADVISOR Temperature 36.4 C (97.5 F) 10/30/2021 11:34 AM SENIOR CLIMATE ADVISOR Respiratory Rate - - Oxygen Saturation 97% 10/30/2021 11:34 AM SENIOR CLIMATE ADVISOR Inhaled Oxygen Concentration - - Weight 103.9 kg (229 lb) 10/30/2021 11:34 AM SENIOR CLIMATE ADVISOR Height 180.3 cm (5' 11) 10/30/2021 11:34 AM SENIOR CLIMATE ADVISOR Body Mass Index 31.94 10/30/2021 11:34 AM SENIOR CLIMATE ADVISOR Plan of Treatment Health Maintenance Due Date Last Done Comments Colon Cancer Screening-Colonoscopy 1965 Depression Screening 1965 Prostate Cancer Screening-PSA 1965 DTaP/Tdap/Td Vaccine (1 - Tdap) 1976 Hepatitis B Screening 1983 Regular Well Visit/Exam 18-64 1983 Pneumococcal vaccine <65 (1 of 2 - PCV) 1984 Zoster Vaccine (1 of 2) 2015 Covid-19 Vaccine (3 - season) 2025, 12/28/2020 Influenza Vaccine (#1) 2025 Hepatitis C Screening Completed 05/03/2019 Procedures Procedure Name Priority Date/Time Associated Diagnosis Comments HEPATITIS C ANTIBODY Routine 05/03/2019 11:55 AM CDT Hepatic steatosis from Last 3 Months or Most Recently Relevant to Health Maintenance Results * Hepatitis C antibody (05/03/2019 11:55 AM CDT) Hep C Ab Nonreactive Nonreactive [facility] Comment: Interpretive Data Positive results should be confirmed by a molecular method. If positive, a second separately collected sample should be submitted for Hepatitis C Virus (HCV) RNA Detection and Quantitation by Real-Time Reverse Button Tufting Machine Operator-PCR (RT-PCR). Current interpretive data was last revised on 2016. Blood specimen (specimen) 05/03/2019 11:55 AM CDT 05/03/2019 11:58 AM CDT Cheri Eduardo MD LAB MICROBIO LOGY - GENERAL ORDERABLES Edited Result - Final [facility] [place] [address] from Last 3 Months or Most Recently Relevant to Health Maintenance Insurance [facility] [id number] Care Teams Exhibits Manager Relationship Specialty Start Date End Date Jeff Frazier MD PCP - General Family Medicine 02/20/19
[2025-06-28 06:22] VITALS: BP 162/103; PULSE 78; RESP 18; TEMP 36.1; O2SAT 97
[2025-06-28] MEDS: LACTATED RINGERS 1,000 ML 150 ML IV CONT (06:38)
--- NOTE | 2025-06-28 06:59 | P.PNAN_ITS ---
Anes - Initial Pre Proc Eval Procedure: Operation Date: 06/28/25 07:30 Proposed Procedures p Screening Colonoscopy - Tye Stein MD Date/Time: 06/28/25 06:59 Surgeon: Tye Stein MD Pre Op Diagnosis: screening Patient Data Age: 60 Gender: M Height: 1.8 m Weight: 118.2 kg Last Vital Signs Temp 97 F L 06/28/25 06:22 Pulse 78 06/28/25 06:22 Resp 18 06/28/25 06:22 BP 162/103 H 06/28/25 06:22 Pulse Ox 97 06/28/25 06:22 O2 Del Method Room Air 06/28/25 06:22 Allergies Allergy/AdvReac Type Severity Reaction Status Date / Time No Known Allergies Allergy Verified 06/28/25 06:20 Home Medications ?Medication ?Instructions ?Recorded ?Confirmed ?Type multivitamin with minerals 1 tablet PO DAILY 02/28/23 06/28/25 History hydrochlorothiazide 25 mg tablet 25 mg PO DAILY #90 ta bs 12/21/23 06/28/25 Rx benazepril 40 mg tablet 40 mg PO DAILY #90 tabs /06/2306/28/25 Rx paroxetine HCl 12.5 mg 12.5 mg PO QAM #90 tabs 01/2806/28/25 Rx tablet,extended release 24 hr paroxetine HCl 37.5 mg 37.5 mg PO QAM #90 tabs 01/2806/28/25 Rx tablet,extended release 24 hr (Paxil CR) cyclobenzaprine 5 mg tablet 7.5 mg (1.5 x 5 mg) PO BID PRN 03/24/25 06/16/25 Rx muscle spasm #60 tabs ezetimibe 10 mg tablet See Rx Instructions .Route 0 05/31/25 06/28/25 Rx .COMPLEX #90 tabs hydroxyzine HCl 25 mg tablet See Rx Instructions .Rout e 06/27/25 06/28/25 Rx .COMPLEX #20 tabs Patient hx anesthesia problems: none Family hx anesthesia problems: none Results Review: All pre-operative results and documents have been reviewed as part of the pre- operative evaluation. [facility] Past Medical History Medical History Adult BMI 36.0-36.9 kg/sq m BMI 39.0-39.9,adult BMI 35.0-35.9,adult BMI 33.0-33.9,adult BMI 34.0-34.9,adult BMI 37.0-37.9, adult Colon cancer screening Anxiety and depression Elevated liver enzymes Essential hypertension Mixed hyperlipidemia Surgical History Surgical History Hx laparoscopic cholecystectomy History of colonoscopy History of eyelid surgery History of tonsillectomy History of surgical removal of lesion Family History Family History Sibling Family history of malignant neoplasm Mother Family history of lung cancer Non Hodgkin's lymphoma Grandparent Family history of malignant neoplasm of brain Family history of malignant neoplasm of breast Family history of type 2 diabetes mellitus Father Family history of type 2 diabetes mellitus Sibling Tobacco abuse Acute myocardial infarction Social History Social History Smoking packs per day: 1 Smoking cigarettes per day: 20.0 Years smoked: 12 Smoking pack-years: 12.00 Smoking status: Former smoker Tobacco type: cigarettes Second hand tobacco smoke exposure: Yes Smoking end date: 12/28/96 Additional smoking assessment comments: smoker 1ppd x10 years Alcohol intake: current Drinks per week: 5 Substance use: never Substance use type: does not use Do You Feel Safe in your Home?: Yes Lack of Transportation: No Lack of Food: Never True Current Housing: I Have Housing Concerned About Future Housing: No Difficulty Paying Gas/Electric Bills: No Difficulty Paying for Meds: No Currently Unemployed: No Education: Master's Degree or Higher Difficulty w/ Childcare or Family Care: No Living arrangements: with family 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 HTN, hyperlipidemia, BMI 36. 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 Informed Consent: The patient's anesthetic plan and its attendant risks and benefits were di scussed with the patient/family/POA. Questions were solicited and answers provided to the satisfaction of the patient/family/POA.
[2025-06-28 07:20] VITALS: BP 151/91
--- NOTE | 2025-06-28 07:21 | SUR.PREOP ---
DR LEOS NOTIFIED OF PT'S BLOOD PRESSURE 162/103 AND REPEAT 151/91, DR AVERY PT, NO NEW ORDERS.
--- NOTE | 2025-06-28 07:24 | PM.HPGS ---
History of Present Illness History of Present Illness Consent: Risks, benefits, and alternatives have been discussed and questions answered. Patient agrees to proceed with procedure. Chief complaint: screening Narrative: Yinka Roberts is a 60 year old male with colon polyp in 2019 Review of Systems Review of Systems: All systems reviewed & are unremarkable except as noted in HPI and below PMFSH Past Medical History Medical History (Updated 06/28/25 @ 07:24 by Tye Stein MD) Colon polyp Adult BMI 36.0-36.9 kg/sq m BMI 39.0-39.9,adult BMI 35.0-35.9,adult BMI 33.0-33.9,adult BMI 34.0-34.9,adult BMI 37.0-37.9, adult Colon cancer screening Anxiety and depression Elevated liver enzymes Essential hypertension Mixed hyperlipidemia Surgical History Surgical History Hx laparoscopic cholecystectomy History of colonoscopy History of eyelid surgery History of tonsillectomy History of surgical removal of lesion Family History Family History Sibling Family history of malignant neoplasm Mother Family history of lung cancer Non Hodgkin's lymphoma Grandparent Family history of malignant neoplasm of brain Family history of malignant neoplasm of breast Family history of type 2 diabetes mellitus Father Family history of type 2 diabetes mellitus Sibling Tobacco abuse Acute myocardial infarction Social History Social History Smoking packs per day: 1 Smoking cigarettes per day: 20.0 Years smoked: 12 Smoking pack-years: 12.00 Smoking status: Former smoker Tobacco type: cigarettes Second hand tobacco smoke exposure: Yes Smoking end date: 12/28/96 Additional smoking assessment comments: smoker 1ppd x10 years Alcohol intake: current Drinks per week: 5 Substance use: never Substance use type: does not use Do You Feel Safe in your Home?: Yes Lack of Transportation: No Lack of Food: Never True Current Housing: I Have Housing Concerned About Future Housing: No Difficulty Paying Gas/Electric Bills: No Difficulty Paying for Meds: No Currently Unemployed: No Education: Master's Degree or Higher Difficulty w/ Childcare or Family Care: No Living arrangements: with family 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 Gender identity (if verbalized by the patient): Male Spiritual care concerns: No Meds Home Medications and Allergies Home Medications ?Medication ?Instructions ?Recorded ?Confirmed ?Type multivitamin with minerals 1 tablet PO DAILY 02/28/23 06/28/25 History hydrochlorothiazide 25 mg tablet 25 mg PO DAILY #90 tabs 12/21/23 06/28/25 Rx benazepril 40 mg tablet 40 mg PO DAILY #90 tabs 10/27/24 06/28/25 Rx paroxetine HCl 12.5 mg 12.5 mg PO QAM #90 tabs 02/17/25 06/28/25 Rx tablet,extended release 24 hr paroxetine HCl 37.5 mg 37.5 mg PO QAM #90 tabs 02/17/25 06/28/25 Rx tablet,extended release 24 hr (Paxil CR) cyclobenzaprine 5 mg tablet 7.5 mg (1.5 x 5 mg) PO BID PRN 03/24/25 06/16/25 Rx muscle spasm #60 tabs ezetimibe 10 mg tablet See Rx Instructions .Route 05/31/25 06/28/25 Rx .COMPLEX #90 tabs hydroxyzine HCl 25 mg tablet See Rx Instructions .Route 06/27/25 06/28/25 Rx .COMPLEX #20 tabs Allergies Allergy/AdvReac Type Severity Reaction Status Date / Time No Known Allergies Allergy Verified 06/28/25 06:20 Vital Signs Vital Signs - 24 hr 06/28/25 06:22 06/28/25 07:20 Temperature 97 F L Pulse Rate 78 Respiratory Rate 18 Blood Pressure 162/103 H 151/91 H Pulse Oximetry 97 Oxygen Delivery Room Air Exam Const: General: comfortable and no acute distress HENMT: Face/Nose/Sinus: Normal nares present Eyes: General: appearance normal, both eyes and all related structures Resp: Auscultation: clear to auscultation bilaterally Cardio: Rate: regular rate Rhythm: regular rhythm GI: Inspection: non-distended GI Palp: Yes Soft to palpation Skin: General skin exam: normal color Neuro: Speech: normal speech Extrem: General: normal to inspection Psych: Mental Status: mental status grossly normal Assessment and Plan Assessment and plan (1) Colon polyp: Code(s): K63.5 - Polyp of colon Status: Acute Assessment and Plan: colonoscopy
--- NOTE | 2025-06-28 07:46 | S_PTH ---
PATIENT: Yinka Roberts LOC: [facility] Frazier#:[id number] AGE/SX: 60/M ROOM: RE06/28/[address]: Tye Stein MD : 1965 BED: DIS: 06/28/2025 SPEC #: [id number] RECD: 06/28/25 08:30 STATUS: ELENA MENDOZA #: [id number] PRECIOUS: 06/28/25 07:[address]: Tye Stein DEPT: [facility] Surgical RECD BY: Basilia Estrella ENTERED: 06/28/25 08:30 SP TYPE: Surgical OTHR DR: Jeff Frazier MD Tissues: A - Colon Polypectomy B - Colon Polypectomy Procedures: Hematoxylin and Eosin Stain Gross and Microscopic Level 4
[2025-06-28 07:50] VITALS: BP 107/77; PULSE 73; RESP 16; O2SAT 96
[2025-06-28 08:00] VITALS: BP 107/74; PULSE 73; RESP 16; O2SAT 96
[2025-06-28 08:10] VITALS: BP 131/77; PULSE 67; RESP 16; O2SAT 96
== END 2025-06-28 08:21 | disposition home or self-care (01) ==
PROVIDERS: PCP Family Medicine; Visit Provider Internal Medicine Gastroenterology
PROC: 0DJD8ZZ Inspection of Lower Intestinal Tract, Via Natural or Artificial Opening Endoscopic (ICD-10-PCS; CPT 45378; principal; 2025-06-28 07:30)
DX: Z12.11 Encounter for screening for malignant neoplasm of colon (principal); D12.2 Benign neoplasm of ascending colon; D12.3 Benign neoplasm of transverse colon; K64.8 Other hemorrhoids; K57.30 Diverticulosis of large intestine without perforation or abscess without bleeding; I10 Essential (primary) hypertension; E78.2 Mixed hyperlipidemia; F41.8 Other specified anxiety disorders; E66.9 Obesity, unspecified; Z68.36 Body mass index [BMI] 36.0-36.9, adult; Z98.890 Other specified postprocedural states; Z90.49 Acquired absence of other specified parts of digestive tract; Z87.891 Personal history of nicotine dependence; Z80.1 Family history of malignant neoplasm of trachea, bronchus and lung; Z80.7 Family history of other malignant neoplasms of lymphoid, hematopoietic and related tissues; Z80.8 Family history of malignant neoplasm of other organs or systems; Z80.3 Family history of malignant neoplasm of breast; Z82.49 Family history of ischemic heart disease and other diseases of the circulatory system
CPT/HCPCS: 45385; 88305; J2003; J2704; J7120